=== PATIENT | female | born 1940 | race Caucasian/White ===

== ENCOUNTER 2018-07-12 00:26 | Day surgery (SDC) | payer MEDICARE, OTHER ==
[~2018-07-12 00:26] MED LIST: BUTONI; Norco 10-325 T1 EACH PO; Zithromax250 MG PO
== END 2018-07-12 09:45 | disposition home or self-care (01) ==
LOC: ATC 00:26
DX: R32 Unspecified urinary incontinence (principal); R10.9 Unspecified abdominal pain
CPT/HCPCS: 51798

== ENCOUNTER 2019-07-02 13:36 | Day surgery (SDC) | payer MEDICARE, OTHER ==
[~2019-07-02] VITALS: Ht 177.8 cm; Wt 85.4 kg
[~2019-07-02 13:36] MED LIST changes: +Fiorinal Capsu1 EACH PO; +OMEPRAZOLE20 MG PO; +Oxycodone HCl5 M1 PO; +Zantac150 MG PO
--- NOTE | 2019-07-02 16:33 | NUR ---
07/02/19 1633 Maria Ines Lopez LATE ENTRY [address] OLEARY GIVE PT. A TAP WATER ENEMA. ENEMA GIVEN PER ORSC.NSC PER ORDER. PT. WITH RESULTS OF LIGHT YELLOW WITH YELLOW SEDIMENT. DR. OLEARY AWARE OF RESULTS.
== END 2019-07-02 16:30 | disposition home or self-care (01) ==
LOC: ORSCSDS 13:36
PROVIDERS: Internal Medicine Gastroenterology
PROC: 0DBE8ZX Excision of Large Intestine, Via Natural or Artificial Opening Endoscopic, Diagnostic (ICD-10-PCS; principal; 2019-07-02 14:45)
PROC: 0DB68ZX Excision of Stomach, Via Natural or Artificial Opening Endoscopic, Diagnostic (ICD-10-PCS; principal; 2019-07-02 14:45)
PROC: 0DBP8ZX Excision of Rectum, Via Natural or Artificial Opening Endoscopic, Diagnostic (ICD-10-PCS; principal; 2019-07-02 14:45)
PROC: 0DB58ZX Excision of Esophagus, Via Natural or Artificial Opening Endoscopic, Diagnostic (ICD-10-PCS; principal; 2019-07-02 14:45)
DX: R19.4 Change in bowel habit (principal); K51.30 Ulcerative (chronic) rectosigmoiditis without complications; K21.0 Gastro-esophageal reflux disease with esophagitis; K29.70 Gastritis, unspecified, without bleeding; Z87.891 Personal history of nicotine dependence; Z79.899 Other long term (current) drug therapy
CPT/HCPCS: 87081; 88305; 88312; 88342; J2704; J7120

== ENCOUNTER → 2021-02-17 | Outpatient (CLI) | payer MEDICARE, OTHER ==
[2021-02-17 10:00] LABS: Bilirubin, Urine Neg (Neg); Blood, Urine 2+ (Neg); Glucose Qualitative, Urine Neg (Neg); Ketones, Urine Neg (Neg); Leukocyte Esterase, Urine Neg (Neg); Nitrite, Urine Neg (Neg); Protein, Urine Neg (Neg); Specific Gravity, Urine 1.015 (1.003-1.022); Urobilinogen, Urine NORM (Normal)
[2021-02-17 10:34] LABS: Appearance, Urine Clear (Clear); Bacteria Not Seen /hpf; Color, Urine Yellow (P-Yellow); Red Blood Cells, Urine 0-2 /hpf (0-2); Squamous Epithelial Cells Rare /hpf (Few); White Blood Cells, Urine Not Seen /hpf (0-5)
[2021-02-17 10:53] LABS: Creatinine, Urine Random 69.6 mg/dL (27.00-270.00)
[2021-02-17 10:55] LABS: Microalb/Creat Ratio UR, Rand 10.948 mg/g (0.000-30.000); Microalbumin, Random Urine 7.62 mg/L (0.000-20.000)
== END | disposition home or self-care (01) ==
LOC: LAB 06:50 → LAB SHORT 06:50
PROVIDERS: Internal Medicine
DX: N18.31 Chronic kidney disease, stage 3a (principal); E02 Subclinical iodine-deficiency hypothyroidism; E78.5 Hyperlipidemia, unspecified; R73.9 Hyperglycemia, unspecified; Z79.899 Other long term (current) drug therapy
CPT/HCPCS: 81001; 82043; 82570

== ENCOUNTER 2024-09-17 15:13 | Emergency (ER) | payer MEDICARE, OTHER ==
[~2024-09-17] VITALS: Ht 175.3 cm; Wt 86.2 kg
[~2024-09-17 15:13] MED LIST changes: +CENTRUM SILVER1 EAC2; +DOCU100
[2024-09-17 15:31] VITALS: BP 140/90
== END 2024-09-17 18:19 | disposition home or self-care (01) ==
LOC: ER 15:13
DX: R79.1 Abnormal coagulation profile (principal); R07.89 Other chest pain; R06.00 Dyspnea, unspecified; Z88.8 Allergy status to other drugs, medicaments and biological substances; Z88.1 Allergy status to other antibiotic agents; Z88.6 Allergy status to analgesic agent; Z79.899 Other long term (current) drug therapy; Z87.891 Personal history of nicotine dependence
CPT/HCPCS: 36415; 71260; 80048; 83880; 84484; 85379; 99283-25; Q9967